=== PATIENT | female | born 1965 | race African-American/Black ===

== ENCOUNTER 2018-06-10 05:51 | Day surgery (SDC) | payer MEDICAID ==
[~2018-06-10] VITALS: Ht 177.8 cm; Wt 97.5 kg
[2018-06-10] MEDS ORDERED: LACTATED RINGERS 1,000 ML IV SCH (06:55)
[2018-06-10] MEDS ORDERED: MORPHINE SULFATE/PF 1MG/ML 10ML AMP ONE (07:05)
[2018-06-10] MEDS ORDERED: EPINEPHRINE 1:1000 1 MG/ML AMP ONE ×2 (07:06→07:23)
[2018-06-10] MEDS ORDERED: NORMAL SALINE 0.9% 10 ML SYR ONE (07:07)
[2018-06-10] MEDS ORDERED: BUPIVACAINE HCL/EPINEPHRINE 0.5%/0.0005 30ML ONE (07:07)
[2018-06-10] MEDS ORDERED: BACITRACIN 50,000 UNITS/VIAL ONE (07:08)
[2018-06-10 07:15] LABS: UCG SCREEN NEGATIVE
[2018-06-10] MEDS ORDERED: SKIN ADHESIVE 0.7 GM EA TOP ONE (07:46)
[2018-06-10] MEDS ORDERED: MIDAZOLAM HCL 2 MG/2 ML VIAL ONE (08:06)
[2018-06-10] MEDS ORDERED: FENTANYL CITRATE/PF 50MCG/ML 5ML VIAL ONE (08:06)
[2018-06-10] MEDS ORDERED: PROPOFOL 200MG/20ML VIAL IV ONE (08:09)
[2018-06-10] MEDS ORDERED: METOCLOPRAMIDE HCL 10MG/2ML VIAL ONE (08:13)
[2018-06-10] MEDS ORDERED: KETOROLAC 30MG/ML VIAL ONE (08:13)
[2018-06-10] MEDS ORDERED: ONDANSETRON HCL 4MG/2ML INJ ONE (08:13)
[2018-06-10] MEDS ORDERED: DEXAMETHASONE 4MG/ML 1ML VIAL ONE (08:13)
[2018-06-10] MEDS ORDERED: CEFAZOLIN SODIUM 1000MG/VIAL ONE (08:17)
[2018-06-10] MEDS ORDERED: FENTANYL CITRATE/PF 50MCG/ML 2ML VIAL IV PRN (08:30)
[2018-06-10] MEDS ORDERED: ONDANSETRON HCL 4MG/2ML INJ IV PRN (08:30)
[2018-06-10] MEDS ORDERED: LIDOCAINE HCL/PF 1% 10 MG/ML 5ML VIAL ONE (09:05)
[2018-06-10] MEDS ORDERED: OXYCODONE HCL/ACETAMINOPHEN 5/325MG TABLET PO PRN (09:15)
[2018-06-10] MEDS ORDERED: IBUP-2029 PO (09:45)
[2018-06-10] MEDS ORDERED: HYDR25TA PO (09:45)
[2018-06-10] MEDS ORDERED: LISI-604 PO (09:45)
[2018-06-10] MEDS ORDERED: CYAN250010 PO (09:45)
[2018-06-10] MEDS ORDERED: ASCO-316 PO (09:45)
[2018-06-10] MEDS ORDERED: CYAN-33 PO (09:46)
== END 2018-06-10 11:35 | disposition home or self-care (01) ==
LOC: OR 05:51
PROVIDERS: ATTEND Orthopaedic Surgery
DX: M23.321 Other meniscus derangements, posterior horn of medial meniscus, right knee (principal); M23.361 Other meniscus derangements, other lateral meniscus, right knee; M94.261 Chondromalacia, right knee; M65.9 Synovitis and tenosynovitis, unspecified; M19.90 Unspecified osteoarthritis, unspecified site; I10 Essential (primary) hypertension; Z98.890 Other specified postprocedural states; Z79.899 Other long term (current) drug therapy; Z79.1 Long term (current) use of non-steroidal anti-inflammatories (NSAID)
CPT/HCPCS: 29880; 81025; 88304; 88311; 97116; 97162; G0168; J0171; J0690; J1100; J1885; J2250; J2405; J2765; J3010; J3490; J7120; L1830; A4216; J2274; J2704